=== PATIENT | male | born 1965 | race Caucasian/White ===

== ENCOUNTER 2017-10-01 17:32 | Observation (INO) ==
[2017-10-01] MEDS ORDERED: Naloxone 0.4 MG/ML INJ IVP PRN (22:55)
[2017-10-01] MEDS ORDERED: Ondansetron 4 MG/2 ML VIAL IVP PRN (22:55)
[2017-10-01] MEDS ORDERED: Acetaminophen 325 MG TABLET PO PRN (22:55)
--- NOTE | 2017-10-01 23:02 | Internal Med History&Physical ---
Date of Encounter: 10/01/17 Time of Encounter: 22:30 Assessment and Plan (1) CVA (cerebral vascular accident) Current visit: Yes Status: Suspected Possible posterior circulation CVA. CT head showed no acute infarct. Patient continues to have diplopia, past-pointing and mild ataxia. Check MRI brain, bilateral carotid Doppler and echocardiogram. Continue telemetry monitoring, cycle troponins. Start aspirin and statin. Check lipid profile. Supportive care. Qualifiers: CVA mechanism: unspecified Qualified Code(s): I63.9 - Cerebral infarction, unspecified (2) Essential hypertension Current visit: Yes Status: Chronic Blood pressure fairly controlled. Resume home blood pressure medications. Internal Medicine - H&P: HPI Chief complaint: Blurred vision Admitted From: Emergency Dept Plans for Post Hospital Care: Home History of present illness: Mr. Kiser is a 52 year old male with history of hypertension and TIA, presents with complaints of new sudden onset of double vision. Patient reports being in his usual state of health until last night when he went to bed around 10 PM. He woke up early this morning and noted that he had double vision and had dizziness on walking. He denies headache, nausea, vomiting, focal weakness in hands and legs. No paresthesias. No chest pain or shortness of breath. He has slight gait imbalance because of double vision and dizziness. No similar episodes in the past. He lives alone and is ADL independent at baseline. Past Med Surg Social Fam HX - Past Medical History Medical history: hypertension, TIA Psychiatric history: no psych history - Past Surgical History Surgical History: other (Tonsillectomy) - Social History Smoking Status: Never smoker Smokeless Tobacco Status: Yes Alcohol use: occasionally (Drinks at least a sixpack of beer 2-3 times per week) , recent Drug use: none Occupational status: unemployed Current living situation: Home - Independent Activity Level: Independent ambulation Recent Out of Country Travel Within the Last 8 Weeks: No Exposure or Possible Exposure to Illness During Travel: No - Family History Mother Living Status: Still Living Hx Family Endocrine Disorder: Yes (DM) Father Hx Family Endocrine Disorder: Yes (Diabetes) Hx Family Neurologic Disorders: Yes (CVA) Internal Medicine - H&P: Meds Lisinopril 30 mg PO DAILY 10/01/17 [History] Metoprolol [Lopressor] 100 mg PO BID 10/01/17 [History] 3 Allergy/AdvReac Type Severity Reaction Status Date / Time No Known Allergies Allergy Verified 10/01/17 14:57 All Systems PM: A 10-system review of systems was performed and is negative for pertinent findings except as documented above in the HPI. - Constitutional Constitutional: no chills, no fever(s), no night sweats - EENT Eyes: blurry vision, change in vision, diplopia Ears: decreased hearing Nose, mouth and throat: no dysphagia, no nasal discharge, no neck pain, no sore throat - Cardiovascular Cardiovascular ROS IM: no chest pain, no diaphoresis, no dyspnea, no lightheadedness, no palpitations, no syncope - Respiratory Respiratory: no cough, no dyspnea, no wheezing, no excessive phlegm production - Gastrointestinal Gastrointestinal: no abdominal pain, no diarrhea, no hematemesis, no hematochezia, no melena, no nausea, no vomiting - Musculoskeletal Musculoskeletal ROS IM: no numbness, no tingling - Integumentary Integumentary IM: no rash, no unusual bruising - Neurological Neurological ROS: abnormal gait, dizziness, lack of coordination, loss of vision - Hematologic/Lymphatic Hematologic/Lymphatic: no easy bruising - Constitutional Vitals: Temp Pulse Resp BP Pulse Ox 98.4 F 75 16 157/99 91 10/01/17 19:22 10/01/17 19:22 10/01/17 19:22 10/01/17 19:22 10/01/17 19:22 General appearance: Present: A&O X 3, answers questions appropriately - ENT Additional comments: B/L hearing loss - Respiratory Respiratory exam: Present: CTAB. Absent: accessory muscle use, rales, rhonchi, wheezes - Cardiovascular Cardiovascular exam: Present: RRR, +S1, +S2. Absent: diastolic murmur, gallop, rubs, systolic murmur - GI/Abdominal GI/Abdominal exam: Present: normal bowel sounds, soft, no peritoneal signs. Absent: distended, tenderness - Extremities Exam Extremities exam: Present: full ROM, warm, radial pulses palpable and symmetrical. Absent: calf tenderness, cyanotic, pedal edema - Neurological Exam Neurological exam: Present: CN II-XII intact, oriented X3, no focal deficits (5/ 5 motor power B/L). Absent: pronater drift, facial droop, speech deficit Additional comments: no pronator drift counting fingers intact B/L Finger-nose test- past pointing B/L - Skin Skin exam: Present: dry, intact
[2017-10-02 06:14] LABS: Basophils % 0.4 %; Eosinophils # 0.3 K/mcL (0.0-0.6); Eosinophils % 3.5 %; Hematocrit 47.2 % (37.5-50.1); Hemoglobin 15.8 g/dL (12.9-16.9); Immature Granulocytes % 0.4 % (0-4); Lymphocytes # 1.8 K/mcL (0.6-4.6); Lymphocytes % 23.9 %; Mean Corpuscular HGB Conc 33.5 g/dL (31.6-35.5); Mean Corpuscular Hemoglobin 30.9 pg (28.0-33.3); Mean Corpuscular Volume 92.2 fL (83.0-100.0); Mean Platelet Volume 11.6 fL (9.4-12.4); Monocytes # 0.5 K/mcL (0.0-1.3); Monocytes % 7.2 %; Neutrophils # 4.9 K/mcL (1.6-8.9); Platelet Count 189 K/mcL (140-400); Red Blood Count 5.12 M/mcL (4.19-5.50); Red Cell Distribution Width 12.1 % (11.5-14.5); Segmented Neutrophils % 64.6 %
[2017-10-02] MEDS: *HR* Heparin 5,000 UNIT/ML VIAL SQ SCH ×3 (06:21→20:20)
[2017-10-02 06:32] LABS: BUN/Creatinine Ratio 11 (6-26); Blood Urea Nitrogen 10 mg/dL (6-20); Calcium 8.8 mg/dL (8.6-10.3); Carbon Dioxide 28 mEq/L (23-29); Chloride 103 mEq/L (98-107); Chol/HDL Ratio 3.6 (0-4.9); Cholesterol 136 mg/dL (< 200); Glucose 127 mg/dL (70-105); HDL Cholesterol 38 mg/dL (40-59); LDL Cholesterol,Calculated 82 mg/dL (0-99); Osmolality,Calculated 287 (280-300); Potassium 3.4 mEq/L (3.5-5.1); Sodium 138 mEq/L (136-145); Triglycerides 82 mg/dL (< 150); eGFR For African Americans > 60 (> 60); eGFR For Non-African Americans > 60 (> 60)
[2017-10-02] MEDS: Lisinopril 20 MG TABLET PO SCH (08:52)
[2017-10-02] MEDS: Metoprolol 100 MG TABLET PO SCH ×2 (08:52→20:19)
[2017-10-02] MEDS: Aspirin Enteric Coated 81 MG Tablet PO SCH (08:52)
--- NOTE | 2017-10-02 16:46 | Neurology - Consult Note ---
Date of Encounter: 10/02/17 Time of Encounter: 12:00 Assessment and Plan (1) CVA (cerebral vascular accident) Current Visit: Yes Status: Suspected Patient developed acute onset of double vision and balance difficulty and MRI of brain showed presence of right thalamic infarct with extension to the mid brain at the dorsal quadrigeminal area likely the cause of his symptoms of diplopia. THis appears lacunar in etiology but could also be occlusion of the of the branch of posterior circulation. Will recommend full stroke work up including CTA of neck and head, echocardiography and carotid artery duplex study. Agree with aspirin 81mg daily and statin therapy. carotid, echo and CTA of neck and head. Qualifiers: CVA mechanism: occlusion Precerebral and cerebral artery: posterior cerebral artery Laterality of affected vessel: right Qualified Code(s): I63.531 - Cerebral infarction due to unspecified occlusion or stenosis of right posterior cerebral artery History of Present Illness Chief complaint: double vision and balance difficulty HPI: Mr. Kiser is a 52 year old male with PMH significant for HTN who developed acute onset of double vision and balance difficulty as a result of the double vision. The double vision only occur when looking with both eyes. No focal weakness or numbness and no speech difficulty. Been having HTN and taking medication for that. MRI of brain showed presence of acute infarct at the right thalamus, also involves the mid brain at the dorsal aspect likely involving the quadrigeminal area. Past Med Surg Social Fam HX - Past Medical History Medical history: hypertension, TIA Psychiatric history: no psych history - Past Surgical History Surgical History: other (Tonsillectomy) - Social History Smoking Status: Never smoker Smokeless Tobacco Status: Yes Alcohol use: occasionally (Drinks at least a sixpack of beer 2-3 times per week) , recent Drug use: none - Family History Mother Living Status: Still Living Hx Family Endocrine Disorder: Yes (DM) Father Hx Family Endocrine Disorder: Yes (Diabetes) Hx Family Neurologic Disorders: Yes (CVA) Medications and Allergies Lisinopril 30 mg PO DAILY 10/01/17 [History] Metoprolol [Lopressor] 100 mg PO BID 10/01/17 [History] 3 Allergy/AdvReac Type Severity Reaction Status Date / Time No Known Allergies Allergy Verified 10/01/17 14:57 All Systems: A 10-system review of systems was performed and is negative for pertinent findings except as documented above in the HPI. Physical Examination - Vital Signs Vital Signs: Initial Vital Signs Temp Pulse Resp BP Pulse Ox 98.4 F 75 16 157/99 91 10/01/17 19:22 10/01/17 19:22 10/01/17 19:22 10/01/17 19:22 10/01/17 19:22 - Constitutional General appearance: comfortable - Neurologic Detailed motor examination: full strength in all major muscle groups Motor examination - right side: 5/5: deltoids, biceps, triceps, wrist flexion, wrist extension, revenue enforcement agent, hip flexors, tibialis Anterior, quadriceps, toe extension (EHL), plantarflexion Motor examination - left side: 5/5: deltoids, biceps, triceps, wrist flexion, wrist extension, hip flexors, revenue enforcement agent, quadriceps, tibialis Anterior, toe extension (EHL), plantarflexion Detailed sensory examination: intact Posture: other (None) Reflex and gait examination: other (Gait is somewhat unsteady) Mental Status Examination: awake, alert, oriented to person, oriented to place, oriented to time, follows commands appropriately, answers questions appropriately, no agnosia, no aphasia, no aproxia Cranial nerve examination: PERRL, EOMI, visual coelho intact, corneal reflexes brisk symmetrically, sensory to face intact, mastication intact, no facial asymmetry is present, no dysarthria, hearing is intact symmetrically, soft palate elevates bilaterally upon phonation, gag reflex intact, flexes SCM and trapezius muscles symmetrically with full power, tongue protrudes midline, no atrophy or facial fasiculations present Cerebellar examination: no dysmetria, performs finger to nose and heel to garcia symmetrically without ataxia, no gait ataxia, no truncal ataxia, no difficulty with rapid alternating movements Results - Laboratory Findings CBC and BMP: 10/02/17 05:15 10/02/17 05:15 Abnormal lab findings: Abnormal lab results Potassium 3.4 mEq/L (3.5-5.1) L 10/02/17 05:15 Glucose 127 mg/dL (70-105) H 10/02/17 05:15 HDL Cholesterol 38 mg/dL (40-59) L 10/02/17 05:15 Consult Discharge Plan - Plan Referrals: Shanon Maciel, FOOD SCIENTIST [Primary Care Provider] - 10/09/17 8:45 am Winston Karimi [Family Provider] -
--- NOTE | 2017-10-02 17:00 | Internal Med Progress Note ---
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 CT HEAD AND NECK REVIEWED AND CONFIRMS STROKE. CONTINUE BP MEDS REPLACE POTASSIUM - Subjective Interval history: NO NEW COMPLAINS, REPORTS SOME IMPROVEMENT IN DOUBLE VISION. NO MUSCLE WEAKNESS OR SLURRING OF SPEECH - Constitutional Vitals: Temp Pulse Resp BP Pulse Ox 98.2 F 59 16 132/84 97 10/02/17 16:03 10/02/17 16:03 10/02/17 16:03 10/02/17 16:03 10/02/17 16:03 General appearance: Present: A&O X 3, answers questions appropriately - Head Head exam: Present: atraumatic, normocephalic - Eye Eye exam: Present: PERRL, conjuntiva pink, sclera anicteric Pupils: Present: PERRL - Neck Neck exam general surgery: Present: supple, trachea midline. Absent: lymphadenopathy - Respiratory Respiratory exam: Present: CTAB. Absent: accessory muscle use, rales, rhonchi, wheezes - Cardiovascular Cardiovascular exam: Present: RRR, +S1, +S2. Absent: diastolic murmur, gallop, rubs, systolic murmur - GI/Abdominal GI/Abdominal exam: Present: normal bowel sounds, soft, no peritoneal signs. Absent: distended, tenderness - Extremities Exam Extremities exam: Present: warm, radial pulses palpable and symmetrical. Absent : calf tenderness, cyanotic, pedal edema - Neurological Exam Neurological exam: Present: CN II-XII intact, oriented X3, no focal deficits. Absent: pronater drift, facial droop, speech deficit - Skin Skin exam: Present: dry, intact Internal Medicine: Result - Labs CBC & Chem 7: 10/02/17 05:15 10/02/17 05:15 Labs: Short CBC 10/02/17 Range/Units 05:15 WBC 7.5 (4.3-11.1) K/mcL Hgb 15.8 (12.9-16.9) g/dL Hct 47.2 (37.5-50.1) % Plt Count 189 (140-400) K/mcL Neutrophils # 4.9 (1.6-8.9) K/mcL BMP 10/02/17 05:15 Sodium 138 Potassium 3.4 L Chloride 103 Carbon Dioxide 28 BUN 10 Creatinine 0.89 Glucose 127 H Calcium 8.8 Cardiac Enzymes 10/01/17 10/02/17 10/02/17 Range/Units 23:15 05:15 10:56 Troponin I < 0.03 < 0.03 < 0.03 (< 0.04) ng/mL - Impressions Impressions Angiography CT 10/02/17 13:18 IMPRESSION: 1. Known acute to subacute infarction in the right thalamus. 2. Unremarkable CTA of the head. D/ / Zoltan Prakash MD / Zoltan Prakash MD Interpreting Provider: Zoltan Prakash MD Neck CTA 10/02/17 13:18 IMPRESSION: Unremarkable CTA of the neck. D/ / 10/02/2017 16:11:23 Son Sams MD / earnold Interpreting Provider: Son Sams MD Brain MRI 10/02/17 22:56 IMPRESSION: 1 cm acute to subacute infarction in the right thalamus. A tiny old infarction in the left cerebellar hemisphere. Mild parenchymal volume loss. D/ / Zoltan Prakash MD / Zoltan Prakash MD Interpreting Provider: Zoltan Prakash MD Echocardiogram 10/02/17 22:56 Impressions: LVEF 60-65%. Mild left ventricular diastolic dysfunction. Normal right ventricular structure and function. Mild tricuspid regurgitation. Probably mild prolapsing of the posterior mitral valve leaflet associated with trivial MR. No pulmonary hypertension. Left Ventricular Wall Motion: Rest Echo Findings All wall segments showed normal motion. Findings: Study Quality * Technically adequate exam. ECG Findings * Sinus bradycardia. Left Ventricle * LVEF 60-65%. * Normal LV chamber size, wall thickness and function. * Mild left ventricular diastolic dysfunction. Right Ventricle * Normal right ventricular structure and function. Left Atrium * Normal left atrial size. Right Atrium * Normal right atrial size. Aortic Valve * No aortic regurgitation. * Trileaflet aortic valve. * No aortic stenosis. Mitral Valve * No mitral stenosis. * Trace mitral regurgitation. * Probably mild prolapsing of the posterior leaflet. Tricuspid Valve * Normal tricuspid valve structure. * Mild tricuspid regurgitation. Pulmonic Valve * Pulmonic valve is not well visualized. * No pulmonic stenosis. * Trace pulmonic regurgitation. Pulmonary Artery * Normal visualized portions of the main pulmonary artery. Aorta * Normally sized aortic root. Pericardium * There is no pericardial effusion present. Interatrial Septum * No evidence of PFO by color Doppler. IVC * The IVC is not well evaluated. Consult Discharge Plan - Plan Referrals: Shanon Maciel CNP [Primary Care Provider] - 10/09/17 8:45 am Winston Karimi [Family Provider] -
[2017-10-03] MEDS: *HR* Heparin 5,000 UNIT/ML VIAL SQ SCH (05:38)
[2017-10-03] MEDS: Aspirin Enteric Coated 81 MG Tablet PO SCH (07:51)
[2017-10-03] MEDS: Lisinopril 20 MG TABLET PO SCH (07:51)
[2017-10-03] MEDS: Metoprolol 100 MG TABLET PO SCH (07:51)
[2017-10-03 08:39] LABS: BUN/Creatinine Ratio 10 (6-26); Blood Urea Nitrogen 10 mg/dL (6-20); Carbon Dioxide 30 mEq/L (23-29); Chloride 110 mEq/L (98-107); Glucose 98 mg/dL (70-105); Osmolality,Calculated 291 (280-300); Potassium 4.4 mEq/L (3.5-5.1); Sodium 141 mEq/L (136-145); eGFR For African Americans > 60 (> 60); eGFR For Non-African Americans > 60 (> 60)
--- NOTE | 2017-10-03 09:11 | Neurology Progress Note ---
Date of Encounter: 10/03/17 Time of Encounter: 09:09 Assessment and Plan (1) CVA (cerebral vascular accident) Current Visit: Yes Status: Suspected Patient developed acute onset of double vision and balance difficulty and MRI of brain showed presence of right thalamic infarct with extension to the mid brain at the dorsal quadrigeminal area likely the cause of his symptoms of diplopia. THis appears lacunar in etiology but could also be occlusion of the of the branch of posterior circulation. Stroke work up completed. Continue Aspirin 81mg daily and statin therapy. In terms of neurology prognosis, it is expected that he continue to improve as patients with diplopia usually adapt. However, diplopia may persist in the next few weeks or longer and therefore his gait may also be affected Qualifiers: CVA mechanism: occlusion Precerebral and cerebral artery: posterior cerebral artery Laterality of affected vessel: right Qualified Code(s): I63.531 - Cerebral infarction due to unspecified occlusion or stenosis of right posterior cerebral artery Subjective Principal diagnosis: Diplopia, and balance difficulty, CVA Interval history: Patient seen and examined. He is stable. Still has diplopia no changes. no significant nausea. completed CTA of neck and head both are unremarkable study Objective - Constitutional Vitals: Temp Pulse Resp BP Pulse Ox 98.0 F 56 16 112/69 95 10/03/17 06:53 10/03/17 06:53 10/03/17 06:53 10/03/17 06:53 10/03/17 06:53 - Neurological Exam Motor Examination: Present: full strength in all major muscle groups Motor examination - left side: 5/5: deltoids, biceps, triceps, wrist flexion, wrist extension, hip flexors, mainframe software developer, quadriceps, tibialis Anterior, toe extension (EHL), plantarflexion Sensation intact: Present: intact Posture: Present: other (None) Reflex and gait examination: other (Gait is somewhat unsteady) Reflexes: Biceps: 2+, Triceps: 2+, Brachioradialis: 2+, Patella: 2+, Achilles: 2 + Mental Status Examination: Present: awake, alert, oriented to person, oriented to place, oriented to time, follows commands appropriately, answers questions appropriately, no agnosia, no aphasia, no aproxia Cranial nerve examination: Present: PERRL, EOMI (Development of diplopia when looking straight ahead and when gazing to both sides), visual coelho intact, corneal reflexes brisk symmetrically, sensory to face intact, mastication intact , no facial asymmetry is present, no dysarthria, hearing is intact symmetrically , soft palate elevates bilaterally upon phonation, gag reflex intact, flexes SCM and trapezius muscles symmetrically with full power, tongue protrudes midline, no atrophy or facial fasiculations present Cerebellar examination: Present: no dysmetria, performs finger to nose and heel to garcia symmetrically without ataxia, no gait ataxia, no truncal ataxia, no difficulty with rapid alternating movements Results - Laboratory Findings CBC and BMP: 10/02/17 05:15 10/03/17 08:16 Abnormal lab findings: Abnormal lab results Chloride 110 mEq/L (98-107) H 10/03/17 08:16 Carbon Dioxide 30 mEq/L (23-29) H 10/03/17 08:16 HDL Cholesterol 38 mg/dL (40-59) L 10/02/17 05:15 Consult Discharge Plan - Plan Referrals: Shanon Maciel CNP [Primary Care Provider] - 10/09/17 8:45 am Winston Karimi [Family Provider] -
[2017-10-03 10:44] VITALS: BP 120/72
--- NOTE | 2017-10-03 11:48 | Discharge Summary ---
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 Atorvastatin [Lipitor] 40 mg PO HS #90 tablet Home Medications: Lisinopril 30 mg PO DAILY 10/01/17 [History] Metoprolol [Lopressor] 100 mg PO BID 10/01/17 [History] Aspirin Enteric Coated [Aspirin EC] 81 mg PO DAILY #90 tablet. 10/03/17 [Rx] Atorvastatin [Lipitor] 40 mg PO HS #90 tablet 10/03/17 [Rx] Allergies/Adverse Reactions: 3 Allergy/AdvReac Type Severity Reaction Status Date / Time No Known Allergies Allergy Verified 10/01/17 14:57 Procedures/tests Complete & Pending: Procedures Performed prior 72 hours Category Date Time Status CT angio head wo/w con [CT] Routine Cat Scan 10/02/17 13:[address] angio neck [CT] Routine Cat Scan 10/02/17 13:18 Draft MR head/brain wo con [MR] Routine MRI 10/02/17 22:56 Completed EV carotid duplex imaging BI Routine Y 10/02/17 22:56 Completed EV echocardiogram Routine Y 10/02/17 22:56 Completed Date of admission: 10/01/17 19:11 Primary care physician: Shanon Maciel CNP Consults: 10/02/17 12:54 Consult to Neurology [CONS] Routine Consulting Provider: Neurology [facility] Reason for Consult: acute CVA Call Completed: Yes 10/02/17 13:45 Consult to Occupational Therapy [CONS] Routine Comment: Evaluate, develop and implement POC Reason for Consult: positive CVA Consult to Physical Therapy [CONS] Routine Comment: Evaluate, develop and implement POC Reason for Consult: positive CVA - Patient Status Disposition: Home, Self-Care Condition: Fair Overall status at discharge: patient is progressing back to baseline - Discharge Instructions Follow Up With: Shanon Maciel CNP [Primary Care Provider] - 10/09/17 8:45 am Winston Karimi [Family Provider] - - Diet and Activity Activity: increase activity as tolerated Diet: low fat, low cholesterol Hospital course: Mr. Kiser is a 52 year old male with history of hypertension and TIA, presents with complaints of new sudden onset of double vision. MRI revealed a right thalamus infarct. Pt was started on ASA and was also seen by neurology, PT /OT. His symptoms improved. He is stable for DC. - Time Spent with Patient Total time spent providing and/or coordinating discharge services: - Constitutional Vitals: Temp Pulse Resp BP Pulse Ox 98.0 F 56 17 120/72 97 10/03/17 10:42 10/03/17 10:42 10/03/17 10:42 10/03/17 10:42 10/03/17 10:42 General appearance: Present: A&O X 3, answers questions appropriately - Head Head exam: Present: atraumatic, normocephalic - Eye Eye exam: Present: PERRL, conjuntiva pink, sclera anicteric Pupils: Present: PERRL - Neck Neck exam general surgery: Present: supple, trachea midline. Absent: lymphadenopathy - Respiratory Respiratory exam: Present: CTAB. Absent: accessory muscle use, rales, rhonchi, wheezes - Cardiovascular Cardiovascular exam: Present: RRR, +S1, +S2. Absent: diastolic murmur, gallop, rubs, systolic murmur - GI/Abdominal GI/Abdominal exam: Present: normal bowel sounds, soft, no peritoneal signs. Absent: distended, tenderness - Extremities Exam Extremities exam: Present: warm, radial pulses palpable and symmetrical. Absent : calf tenderness, cyanotic, pedal edema - Neurological Exam Neurological exam: Present: CN II-XII intact, oriented X3, no focal deficits. Absent: pronater drift, facial droop, speech deficit - Skin Skin exam: Present: dry, intact
== END 2017-10-03 12:52 | disposition home or self-care (01) ==
LOC: 3BNU
PROVIDERS: ADMIT Internal Medicine; ATTEND Registered Nurse